=== PATIENT | female | born 1975 | race Caucasian/White ===

== ENCOUNTER 2017-02-21 22:10 | Emergency (ER) | payer OTHER ==
[~2017-02-21] VITALS: Ht 165.1 cm; Wt 60.0 kg
[2017-02-21 22:50] VITALS: BP 98/54; PULSE 77; RESP 16; TEMP 98.6; O2SAT 100
--- NOTE | 2017-02-21 22:54 | PD ---
HPI . Public intoxication Chief Complaint: right elbow pain Time Seen by Provider: 22:49 Travel History International Travel<30 days: No Contact w/Intl Traveler<30days: No History of Present Illness HPI Patient presents to us as a Kely's Act. She had reportedly been here all day drinking. She called [employer] to take her home. However, she kept trying to get out of the car. She was reportedly running around in traffic. The police were called and she was brought here. The patient states that she fell and injured her right elbow. She reports that her pain is exacerbated by flexion and is improved by extension. PFSH Social History Tobacco Use: No Allergies-Medications (Allergen,Severity, Reaction): Coded Allergies: No Known Allergies (Unverified , 02/21/17) Reported Meds & Prescriptions Reported Meds & Active Scripts Active No Active Prescriptions or Reported Medications Review of Systems Except as stated in HPI: all other systems reviewed are Neg Musculoskeletal: Positive: Arthralgias Psychiatric: Positive: Substance Abuse Physical Exam Narrative GENERAL: Awake and alert. Currently pleasantly intoxicated. SKIN: Warm and dry. Bruise just distal to the right elbow. HEAD: Atraumatic. Normocephalic. EYES: Pupils equal and round. NECK: Trachea midline. Neck supple. CARDIOVASCULAR: Regular rate and rhythm. RESPIRATORY: No accessory muscle use. MUSCULOSKELETAL: She is able to fully extend her right elbow. She is distally neurovascularly intact. NEUROLOGICAL: Awake and alert. No obvious cranial nerve deficits. Motor grossly within normal limits. Normal speech. PSYCHIATRIC: Appropriate mood and affect; insight and judgment poor. Data Data Last Documented VS Vital Signs Date Time Temp Pulse Resp B/P Pulse Ox O2 Delivery O2 Flow Rate FiO2 02/21/17 22:50 98.6 77 16 98/54 100 Orders Elbow, Complete (4 Vws) (02/21/17 22:49) Sodium Chlor 0.9% 1000 Ml Inj (Ns 1000 M (02/22/17 00:00) MDM Medical Decision Making Medical Screen Exam Complete: Yes Emergency Medical Condition: Yes Differential Diagnosis Differential diagnosis of altered mental status includes but is not limited to infection, electrolyte abnormality, neurological event, intoxication Differential diagnosis of extremity trauma includes but is not limited to fracture, sprain or strain, dislocation, contusion Narrative Course Patient presents to us as a Kely's Act. She has also injured her right elbow. X-ray of the elbow is pending. X-ray to my interpretation is negative for acute process. Verbal report from radiology is that it has been read as negative by the radiologist as well. Diagnosis Primary Impression: Acute alcohol intoxication Qualified Code: F10.920 - Acute alcohol intoxication, uncomplicated Additional Impression: Contusion of right elbow Qualified Code: S50.01XA - Contusion of right elbow, initial encounter Patient Instructions: Alcohol Intoxication (DC), General Instructions Scripts No Active Prescriptions or Reported Meds Disposition: DISCHARGE HOME Condition: Stable Tereza Masters MD February 21, 2017 22:54
[2017-02-22] VITALS: BP 88/54; PULSE 90; RESP 16; O2SAT 99
[2017-02-22 01:00] VITALS: BP 98/64; PULSE 80; RESP 16; O2SAT 99
[2017-02-22 05:15] VITALS: BP 77/44; PULSE 90; RESP 16; O2SAT 100
[2017-02-22 05:39] VITALS: BP 84/54; PULSE 88; RESP 16; O2SAT 97
[2017-02-22] MEDS ORDERED: SODIUM CHLOR 0.9% 1000 ML INJ 1,000 ML IV ONE ×2 (05:45)
[2017-02-22 06:08] VITALS: BP 94/52; PULSE 88; RESP 16; O2SAT 100
[2017-02-22] MEDS ORDERED: ONDANSETRON HCL 4 MG/2 ML VIAL ONE (06:27)
[2017-02-22] MEDS ORDERED: ONDANSETRON HCL 4 MG/2 ML VIAL IV PUSH ONE (06:45)
--- NOTE | 2017-02-22 08:24 | RADRPT ---
EXAM DATE/TIME: 02/21/2017 22:59 [facility] COMPARISON: No previous studies available for comparison. INDICATIONS : Right elbow pain. MEDICAL HISTORY : None. SURGICAL HISTORY : None. ENCOUNTER: Initial ACUITY: 1 day PAIN SCORE: 7/10 LOCATION: Right upper extremity FINDINGS: Multiple view examination of the right elbow demonstrates no soft tissue swelling, joint effusion, or fracture. The osseous structures are in normal alignment. Bony mineralization is normal. CONCLUSION: Unremarkable examination of the right elbow. Mele Sprague MD on February 21, 2017 at 23:22 Board Certified Radiologist. This report was verified electronically.
== END 2017-02-22 06:41 | disposition home or self-care (01) ==
LOC: NEPD 22:10
DX: F10.120 Alcohol abuse with intoxication, uncomplicated (principal); S50.01XA Contusion of right elbow, initial encounter; W19.XXXA Unspecified fall, initial encounter; Y93.02 Activity, running
CPT/HCPCS: 73080; 96361; 96374; 99284; J7030; J2405